=== PATIENT | male | born 1990 | race African-American/Black ===

== ENCOUNTER 2024-06-02 03:09 | Emergency (ER) | payer SELFPAY ==
[2024-06-02] MEDS: Doxycycline 100 MG Cap PO ONE (03:35)
[2024-06-02] MEDS: cefTRIAXone 500 MG Vial IM ONE (03:35)
[2024-06-02] MEDS: Lidocaine 1% 5 ML VIAL INJECT ONE (03:35)
[2024-06-02] MEDS: cefTRIAXone 1 GM Vial IM ONE (03:40)
[2024-06-02 05:05] LABS: C. TRACHOMATIS BY PCR NOT DETECTED; N. GONORRHOEAE BY PCR DETECTED
== END 2024-06-02 03:41 | disposition home or self-care (01) ==
LOC: MW.ED 03:09
DX: N34.2 Other urethritis (principal); Z79.2 Long term (current) use of antibiotics; Z75.8 Other problems related to medical facilities and other health care
CPT/HCPCS: 87491; 87591; 96372; 99283; A9270; J0696; J3490